=== PATIENT | male | born 1945 | race Caucasian/White ===

== ENCOUNTER 2017-02-10 12:30 | Emergency (ER) | payer MEDICARE, MEDICAID ==
[~2017-02-10] VITALS: Ht 167.6 cm; Wt 54.2 kg
[~2017-02-10 12:30] MED LIST: ADV50250 IH; AMITRIPTYLINE PO; ASPI-611 PO; ATOR10TA PO; CLON-528 PO; FERR325T28 PO; HYDR-3968 PO; LEVA15HF4 INH; LISI10TA4 PO; MARIJUANA; TIZA2CAP PO
[2017-02-10] MEDS ORDERED: METH500T PO (13:22)
[2017-02-10] MEDS ORDERED: VAL5T PO (13:22)
[2017-02-10 13:35] VITALS: BP 118/57
== END 2017-02-10 13:37 | disposition home or self-care (01) ==
LOC: ER 12:31
DX: S29.012A Strain of muscle and tendon of back wall of thorax, initial encounter (principal); S16.1XXA Strain of muscle, fascia and tendon at neck level, initial encounter; M62.830 Muscle spasm of back; G89.29 Other chronic pain; I10 Essential (primary) hypertension; G62.9 Polyneuropathy, unspecified; Z79.82 Long term (current) use of aspirin; Z79.899 Other long term (current) drug therapy; W18.39XA Other fall on same level, initial encounter; Y93.89 Activity, other specified; Y92.89 Other specified places as the place of occurrence of the external cause; Y99.8 Other external cause status
CPT/HCPCS: 99284

== ENCOUNTER 2017-03-19 12:02 | Emergency (ER) | payer MEDICARE, MEDICAID ==
[~2017-03-19] VITALS: Ht 167.6 cm; Wt 48.3 kg
[~2017-03-19 12:02] MED LIST changes: +METH500T PO
[2017-03-19] MEDS ORDERED: CEPH500C5 PO (12:35)
[2017-03-19 12:56] VITALS: BP 125/69
== END 2017-03-19 12:58 | disposition home or self-care (01) ==
LOC: ER 12:03
DX: L89.153 Pressure ulcer of sacral region, stage 3 (principal); L89.323 Pressure ulcer of left buttock, stage 3; L89.313 Pressure ulcer of right buttock, stage 3; G62.9 Polyneuropathy, unspecified; I10 Essential (primary) hypertension; G89.29 Other chronic pain; Z90.49 Acquired absence of other specified parts of digestive tract; Z79.82 Long term (current) use of aspirin; Z79.899 Other long term (current) drug therapy
CPT/HCPCS: 99284

== ENCOUNTER 2017-03-24 09:47 | Outpatient (CLI) | payer MEDICARE, MEDICAID ==
[~2017-03-24 09:47] MED LIST changes: +CEPH500C5 PO
== END 2017-03-24 11:12 | disposition home or self-care (01) ==
LOC: WOUND CARE 09:47 → EDSTATUS 10:00 → WOUND CARE 11:12
PROVIDERS: ATTEND Surgery
DX: L89.152 Pressure ulcer of sacral region, stage 2 (principal); I10 Essential (primary) hypertension; G62.9 Polyneuropathy, unspecified; Z90.49 Acquired absence of other specified parts of digestive tract; Z79.82 Long term (current) use of aspirin; Z79.899 Other long term (current) drug therapy
CPT/HCPCS: 99215; A6206; A6213

== ENCOUNTER 2017-04-03 10:00 | Outpatient (CLI) | payer MEDICARE, MEDICAID ==
[2017-04-04] MEDS ORDERED: NIFE60TA69 (07:03)
[2017-04-04] MEDS ORDERED: PREG50CA (07:03)
== END 2017-04-03 10:55 | disposition short-term general hospital (02) ==
LOC: EDSTATUS 10:00 → WOUND CARE 10:00
PROVIDERS: ATTEND Surgery
DX: L89.152 Pressure ulcer of sacral region, stage 2 (principal); I10 Essential (primary) hypertension; G62.9 Polyneuropathy, unspecified; Z90.49 Acquired absence of other specified parts of digestive tract; Z79.82 Long term (current) use of aspirin; Z79.899 Other long term (current) drug therapy; Z85.830 Personal history of malignant neoplasm of bone
CPT/HCPCS: 99215; A6212

== ENCOUNTER 2017-04-03 10:57 | Inpatient (IN) | payer MEDICARE, MEDICAID ==
[~2017-04-03] VITALS: Ht 167.6 cm; Wt 48.2 kg
[2017-04-03] VITALS (9 sets, daily range): BP systolic 79–96; BP diastolic 24–53
[2017-04-03] MEDS: K, MAG and/or Phos replacement - Verify level? MC SCH (08:00)
[2017-04-03] MEDS: ferrous sulfate 325mg tablet PO SCH (08:00)
[2017-04-03] MEDS ORDERED: normal saline 1000ml 1,000 ML IV ONE ×4 (11:40→20:45)
[2017-04-03] MEDS ORDERED: CefTRIAXone 2gm/NS 100ml IVPB 100 ML IV ONE (11:45)
[2017-04-03 11:48] LABS: BASOPHILS % (AUTO) 0 % (0-1); EOSINOPHILS # (AUTO) 0.5 X10'3 (0-0.9); HEMATOCRIT 28.6 % (42.0-52.0); HEMOGLOBIN 9.8 g/dl (14.0-17.9); LYMPHOCYTES # (AUTO) 0.5 X10'3 (1.1-4.8); MEAN CORPUSCULAR HEMOGLOBIN 30.6 PG (27.0-31.0); MEAN CORPUSCULAR HGB CONC 34.2 % (33.0-36.5); MEAN CORPUSCULAR VOLUME 89.5 FL (78-98); MEAN PLATELET VOLUME 7.8 FL (7.4-10.4); MONOCYTES # (AUTO) 0.6 X10'3 (0-0.9); MONOCYTES % (AUTO) 2.6 % (2-12); NEUTROPHILS # (AUTO) 21.5 X10'3 (1.8-7.7); NEUTROPHILS % (AUTO) 93.4 % (42-75); PLATELET COUNT 276 X10'3 (140-440); RED CELL DISTRIBUTION WIDTH 15.4 % (11.5-14.5)
[2017-04-03 12:03] LABS: AMMONIA < 10 UMOL/L (11-32)
[2017-04-03 12:04] LABS: ALANINE AMINOTRANSFERASE 35 U/L (12-78); ALBUMIN 2.5 G/DL (3.4-5.0); ALBUMIN/GLOBULIN RATIO 0.6 (1.1-1.5); ALKALINE PHOSPHATASE 198 IU/L (46-116); ANION GAP 16 (8-16); ASPARTATE AMINO TRANSFERASE 59 U/L (10-37); BILIRUBIN,TOTAL 0.6 MG/DL (0.1-1.0); BLOOD UREA NITROGEN 92 MG/DL (7-18); BUN/CREATININE RATIO 25.2 (5.4-32.0); CALCIUM 8.6 MG/DL (8.5-10.1); CHLORIDE 86 MMOL/L (99-107); CREATININE 3.65 MG/DL (0.60-1.10); GLUCOSE 184 MG/DL (70-104); POTASSIUM 5.5 MMOL/L (3.5-5.1); SODIUM 127 MMOL/L (135-145); TOTAL CARBON DIOXIDE 25.2 MMOL/L (24-32); TOTAL PROTEIN 6.7 G/DL (6.4-8.2); eGFR 17 ML/MIN
[2017-04-03 12:23] LABS: INR 1.2 INR; LACTIC SEPSIS 4.6 MMOL/L (0.4-2.0); MAGNESIUM 2.6 MG/DL (1.5-2.4); PARTIAL THROMBOPLASTIN TIME 25 SECONDS (22-32)
[2017-04-03] MEDS ORDERED: piperacillin/tazo 3.375gm/50ml 50 ML IV ONE (12:27)
[2017-04-03] MEDS ORDERED: heparin 10,000 units/1 ML INJ IV ONE ×2 (12:40)
[2017-04-03] MEDS ORDERED: heparin 10,000 units/1 ML INJ IV PRN (13:20)
[2017-04-03] MEDS ORDERED: potassium Cl 20 mEq SR tablet PO PRN (14:00)
[2017-04-03] MEDS ORDERED: Neutra Phos packet PO PRN (14:00)
[2017-04-03] MEDS ORDERED: magnesium 2GM in 50ml NS 50 ML IV PRN (14:00)
[2017-04-03] MEDS ORDERED: magnesium 4gm in 100ml NS 100 ML IV PRN (14:00)
[2017-04-03] MEDS ORDERED: acetaminophen 325mg tablet PO PRN ×2 (14:00)
[2017-04-03] MEDS ORDERED: ondansetron/PF 4mg/2ml inj IV PRN (14:00)
[2017-04-03] MEDS ORDERED: sodium phosphate inj. 30 MMOL in dextrose 5%-water 250 ML IV PRN (14:00)
[2017-04-03] MEDS ORDERED: magnesium hydroxide 30ml (MOM) UD suspension PO PRN (14:00)
[2017-04-03] MEDS ORDERED: sodium phosphate inj. 15 MMOL in dextrose 5%-water 150 ML IV PRN (14:00)
[2017-04-03] MEDS ORDERED: magnesium Cl slow-release 64mg tablet PO PRN (14:00)
[2017-04-03 14:30] LABS: OCCULT BLOOD STOOL NEGATIVE (Neg)
[2017-04-03] MEDS: normal saline 1000ml 1,000 ML IV SCH ×5 (14:36→22:42)
[2017-04-03] MEDS ORDERED: heparin 10,000 units/1 ML INJ IV SCH (14:50)
[2017-04-03 15:18] LABS: CLARITY,URINE CLOUDY (Clear); COLOR,URINE YELLOW (Yellow); GLUCOSE, URINE NEGATIVE (Neg); KETONES,URINE NEGATIVE (Neg); LEUKOCYTE ESTERASE ,URINE SMALL (Neg); NITRITES, URINE NEGATIVE (Neg); OCCULT BLOOD,URINE LARGE (Neg); PROTEIN,URINE TRACE mg/dl (Neg); UA COLLECTION TYPE FOLEY CATH; UROBILINOGEN,URINE 0.2 E.U/dL (0.2-1.0)
[2017-04-03 15:27] LABS: SQUAMOUS EPITHELIAL CELL,UR MANY /LPF (FEW); WBC CLUMPS,URINE MANY /HPF (NEGATIVE)
[2017-04-03 15:28] LABS: BACTERIA,URINE 2+ /HPF (Neg); RBC,URINE 50-100 /HPF (0-2); WBC,URINE 50-100 /HPF (0-4)
[2017-04-03] MEDS: levoFLOXACIN-Levaquin 500mg/D5 100 ML IV SCH (16:53)
[2017-04-03 17:15] LABS: GASTRIC OCCULT BLOOD NEGATIVE (Neg)
[2017-04-03] MEDS ORDERED: insulin regular, human 10 units/0.1 ml syringe IV ONE (17:15)
[2017-04-03] MEDS ORDERED: sodium bicarbonate (8.4%) 1 mEq/ml syringe IV ONE ×2 (17:15→17:40)
[2017-04-03] MEDS ORDERED: dextrose 50%-water 50ml dispensing syringe IV ONE (17:15)
[2017-04-03] MEDS ORDERED: sodium polystyrene sulfonate 15gm/60ml oral suspension PO ONE (17:15)
[2017-04-03] MEDS: albuterol 2.5 MG/3 ML nebule CONTNEB PRN ×2 (17:54→21:40)
[2017-04-03 19:16] LABS: ABG BASE EXCESS -2.2 mmol/L (-2.0-3.0); ABG HCO3 20.9 mmol/L (22.0-26.0); ABG OXYGEN SATURATION 94.2 % (95-98); ABG PCO2 (T) 30.4 mmHg (35.0-48.0); ABG PH (T) 7.458 (7.350-7.450); ABG PO2 (T) 77.2 mmHg (83-108); FCOHb 0.3 % (0.5-1.5); FO2Hb 93.9 % (94-100); PATIENT TEMPERATURE 37.6; TOTAL HEMOGLOBIN 8.9 G/dl (14.0-18.0)
[2017-04-03] MEDS ORDERED: albumin (human) 25% 100 ML IV solution IV ONE (20:15)
[2017-04-03] MEDS ORDERED: albumin (Human) 5% 250 ML IV solution IV STA ×2 (20:39→20:42)
[2017-04-03] MEDS: atorvastatin 10mg tablet PO SCH (22:15)
[2017-04-03] MEDS: clonazePAM 0.5mg tablet PO SCH (22:15)
[2017-04-03 22:32] LABS: BASOPHILS % (AUTO) 0 % (0-1); EOSINOPHILS % (AUTO) 0 % (0-6); HEMOGLOBIN 7.6 g/dl (14.0-17.9); LYMPHOCYTES # (AUTO) 0.1 X10'3 (1.1-4.8); LYMPHOCYTES % (AUTO) 0.5 % (21-51); MEAN CORPUSCULAR HEMOGLOBIN 30.7 PG (27.0-31.0); MEAN CORPUSCULAR HGB CONC 34.8 % (33.0-36.5); MEAN CORPUSCULAR VOLUME 88.4 FL (78-98); MEAN PLATELET VOLUME 7.4 FL (7.4-10.4); MONOCYTES # (AUTO) 0.5 X10'3 (0-0.9); MONOCYTES % (AUTO) 2.6 % (2-12); NEUTROPHILS # (AUTO) 18.7 X10'3 (1.8-7.7); NEUTROPHILS % (AUTO) 96.9 % (42-75); PLATELET COUNT 249 X10'3 (140-440); RED BLOOD COUNT 2.49 X10'6 (4.70-6.10); RED CELL DISTRIBUTION WIDTH 15.5 % (11.5-14.5); WHITE BLOOD COUNT 19.3 X10'3 (4.5-11.0)
[2017-04-03 22:46] LABS: ALANINE AMINOTRANSFERASE 25 U/L (12-78); ALBUMIN 2.3 G/DL (3.4-5.0); ALBUMIN/GLOBULIN RATIO 0.7 (1.1-1.5); ALKALINE PHOSPHATASE 142 IU/L (46-116); ANION GAP 11 (8-16); ASPARTATE AMINO TRANSFERASE 46 U/L (10-37); BILIRUBIN,TOTAL 0.5 MG/DL (0.1-1.0); BLOOD UREA NITROGEN 69 MG/DL (7-18); BUN/CREATININE RATIO 35.6 (5.4-32.0); CALCIUM 7.5 MG/DL (8.5-10.1); CHLORIDE 98 MMOL/L (99-107); CREATININE 1.94 MG/DL (0.60-1.10); GLUCOSE 133 MG/DL (70-104); MAGNESIUM 2.1 MG/DL (1.5-2.4); PHOSPHORUS 4.1 MG/DL (2.3-4.5); POTASSIUM 3.6 MMOL/L (3.5-5.1); SODIUM 136 MMOL/L (135-145); TOTAL CARBON DIOXIDE 27.1 MMOL/L (24-32); TOTAL PROTEIN 5.4 G/DL (6.4-8.2); eGFR 34 ML/MIN
[2017-04-04] VITALS (28 sets, daily range): BP systolic 83–110; BP diastolic 33–56
[2017-04-04] MEDS: normal saline 1000ml 1,000 ML IV SCH ×2 (00:29→14:24)
[2017-04-04] MEDS ORDERED: HYDROcodone/acetaminophen 5mg/325mg tablet PO ONE (01:45)
[2017-04-04 05:21] LABS: BASOPHILS % (AUTO) 0 % (0-1); EOSINOPHILS % (AUTO) 0 % (0-6); HEMOGLOBIN 7.1 g/dl (14.0-17.9); LYMPHOCYTES # (AUTO) 0.2 X10'3 (1.1-4.8); LYMPHOCYTES % (AUTO) 1.3 % (21-51); MEAN CORPUSCULAR HEMOGLOBIN 30.9 PG (27.0-31.0); MEAN CORPUSCULAR HGB CONC 34.9 % (33.0-36.5); MEAN CORPUSCULAR VOLUME 88.4 FL (78-98); MEAN PLATELET VOLUME 7.4 FL (7.4-10.4); MONOCYTES # (AUTO) 0.4 X10'3 (0-0.9); MONOCYTES % (AUTO) 2.3 % (2-12); NEUTROPHILS # (AUTO) 18.2 X10'3 (1.8-7.7); NEUTROPHILS % (AUTO) 96.4 % (42-75); PLATELET COUNT 243 X10'3 (140-440); RED CELL DISTRIBUTION WIDTH 15.4 % (11.5-14.5); WHITE BLOOD COUNT 18.9 X10'3 (4.5-11.0)
[2017-04-04 05:31] LABS: ALANINE AMINOTRANSFERASE 24 U/L (12-78); ALBUMIN 2.6 G/DL (3.4-5.0); ALBUMIN/GLOBULIN RATIO 0.9 (1.1-1.5); ALKALINE PHOSPHATASE 129 IU/L (46-116); ANION GAP 12 (8-16); ASPARTATE AMINO TRANSFERASE 43 U/L (10-37); BILIRUBIN,TOTAL 0.6 MG/DL (0.1-1.0); BLOOD UREA NITROGEN 61 MG/DL (7-18); BUN/CREATININE RATIO 40.7 (5.4-32.0); CALCIUM 7.8 MG/DL (8.5-10.1); CHLORIDE 99 MMOL/L (99-107); GLUCOSE 114 MG/DL (70-104); PHOSPHORUS 3.9 MG/DL (2.3-4.5); POTASSIUM 3.4 MMOL/L (3.5-5.1); SODIUM 138 MMOL/L (135-145); TOTAL CARBON DIOXIDE 26.9 MMOL/L (24-32); TOTAL PROTEIN 5.4 G/DL (6.4-8.2); eGFR 46 ML/MIN
[2017-04-04 05:35] LABS: HEMATOCRIT 20.3 % (42.0-52.0)
[2017-04-04] MEDS ORDERED: FLU VACC QS2017-18 36MOS UP/PF 60 MCG/0.5 ML SYRINGE IMVAC ONE (06:25)
[2017-04-04] MEDS ORDERED: pneumococcal 23-VAL P-sac vacc 25 mcg/0.5ml vial IMVAC ONE (06:25)
[2017-04-04] MEDS ORDERED: NIFE60TA69 (07:03)
[2017-04-04] MEDS ORDERED: PREG50CA (07:03)
[2017-04-04] MEDS: albuterol 2.5 MG/3 ML nebule CONTNEB PRN (07:39)
[2017-04-04] MEDS: K, MAG and/or Phos replacement - Verify level? MC SCH (08:00)
[2017-04-04] MEDS: clonazePAM 0.5mg tablet PO SCH ×3 (08:15→20:03)
[2017-04-04] MEDS: aspirin 81mg tablet.DR PO SCH (08:16)
[2017-04-04] MEDS: potassium Cl 20 mEq SR tablet PO PRN ×2 (08:16→15:26)
[2017-04-04] MEDS: ferrous sulfate 325mg tablet PO SCH (08:16)
[2017-04-04] MEDS: levoFLOXACIN-Levaquin 500mg/D5 100 ML IV SCH (08:17)
[2017-04-04 09:24] LABS: HEMATOCRIT 27.2 % (42.0-52.0); HEMOGLOBIN 9.4 g/dl (14.0-17.9); MEAN CORPUSCULAR HEMOGLOBIN 29.5 PG (27.0-31.0); MEAN CORPUSCULAR HGB CONC 34.5 % (33.0-36.5); MEAN CORPUSCULAR VOLUME 85.5 FL (78-98); MEAN PLATELET VOLUME 7.3 FL (7.4-10.4); PLATELET COUNT 235 X10'3 (140-440); RED BLOOD COUNT 3.19 X10'6 (4.70-6.10); RED CELL DISTRIBUTION WIDTH 17.5 % (11.5-14.5); WHITE BLOOD COUNT 21.1 X10'3 (4.5-11.0)
[2017-04-04] MEDS: cefTRIAXone 1g/NS 100ml IVPB 100 ML IV SCH (09:37)
[2017-04-04] MEDS: multivitamin oral liquid (Certavite) 5ml cup PO SCH (11:41)
[2017-04-04] MEDS: pantoprazole 40 MG vial IV SCH (11:41)
[2017-04-04] MEDS: hydrocortisone sod succ/PF 100mg/2ml inj. IV SCH ×2 (14:19→19:05)
[2017-04-04] MEDS: lactobacillus rhamnosus 10,000 MMU CELLS/CAPSULE PO SCH (19:06)
[2017-04-04] MEDS: atorvastatin 10mg tablet PO SCH (20:03)
[2017-04-04] MEDS ORDERED: normal saline 500ml IV soln 1,000 ML IV ONE (20:50)
[2017-04-05] VITALS (25 sets, daily range): BP systolic 84–118; BP diastolic 39–62
[2017-04-05 02:35] LABS: BASOPHILS % (AUTO) 0.2 % (0-1); EOSINOPHILS % (AUTO) 0 % (0-6); HEMATOCRIT 24.8 % (42.0-52.0); HEMOGLOBIN 8.3 g/dl (14.0-17.9); LYMPHOCYTES # (AUTO) 0.2 X10'3 (1.1-4.8); MEAN CORPUSCULAR HEMOGLOBIN 28.9 PG (27.0-31.0); MEAN CORPUSCULAR HGB CONC 33.5 % (33.0-36.5); MEAN CORPUSCULAR VOLUME 86.1 FL (78-98); MEAN PLATELET VOLUME 7.3 FL (7.4-10.4); MONOCYTES # (AUTO) 0.6 X10'3 (0-0.9); MONOCYTES % (AUTO) 2.9 % (2-12); NEUTROPHILS % (AUTO) 95.9 % (42-75); PLATELET COUNT 225 X10'3 (140-440); RED BLOOD COUNT 2.88 X10'6 (4.70-6.10); RED CELL DISTRIBUTION WIDTH 17.5 % (11.5-14.5); WHITE BLOOD COUNT 19.8 X10'3 (4.5-11.0)
[2017-04-05] MEDS: hydrocortisone sod succ/PF 100mg/2ml inj. IV SCH ×4 (02:42→20:31)
[2017-04-05 02:49] LABS: ALANINE AMINOTRANSFERASE 21 U/L (12-78); ALBUMIN 1.9 G/DL (3.4-5.0); ALBUMIN/GLOBULIN RATIO 0.6 (1.1-1.5); ALKALINE PHOSPHATASE 125 IU/L (46-116); ANION GAP 8 (8-16); ASPARTATE AMINO TRANSFERASE 35 U/L (10-37); BILIRUBIN,TOTAL 0.5 MG/DL (0.1-1.0); BLOOD UREA NITROGEN 42 MG/DL (7-18); BUN/CREATININE RATIO 56.8 (5.4-32.0); CALCIUM 7.9 MG/DL (8.5-10.1); CHLORIDE 106 MMOL/L (99-107); CREATININE 0.74 MG/DL (0.60-1.10); GLUCOSE 184 MG/DL (70-104); PHOSPHORUS 2.3 MG/DL (2.3-4.5); POTASSIUM 3.4 MMOL/L (3.5-5.1); SODIUM 139 MMOL/L (135-145); TOTAL CARBON DIOXIDE 24.8 MMOL/L (24-32); eGFR > 90 ML/MIN
[2017-04-05] MEDS ORDERED: potassium Cl oral solution 20 MEQ/15 ML PO PRN (03:20)
[2017-04-05] MEDS: potassium Cl oral solution 20 MEQ/15 ML PO PRN ×2 (03:52→12:33)
[2017-04-05] MEDS: normal saline 1000ml 1,000 ML IV SCH ×2 (05:56→11:17)
[2017-04-05] MEDS: K, MAG and/or Phos replacement - Verify level? MC SCH (08:00)
[2017-04-05] MEDS: pantoprazole 40 MG vial IV SCH (08:25)
[2017-04-05] MEDS: levoFLOXACIN-Levaquin 500mg/D5 100 ML IV SCH (08:25)
[2017-04-05] MEDS: lactobacillus rhamnosus 10,000 MMU CELLS/CAPSULE PO SCH ×2 (08:25→20:32)
[2017-04-05] MEDS: aspirin 81mg tablet.DR PO SCH (08:25)
[2017-04-05] MEDS: ferrous sulfate 325mg tablet PO SCH (08:25)
[2017-04-05] MEDS: clonazePAM 0.5mg tablet PO SCH ×3 (08:25→20:32)
[2017-04-05] MEDS: cefTRIAXone 1g/NS 100ml IVPB 100 ML IV SCH (08:25)
[2017-04-05] MEDS: multivitamin oral liquid (Certavite) 5ml cup PO SCH (08:25)
[2017-04-05] MEDS ORDERED: MESSAGE TO PHARMACY PO ONE (09:15)
[2017-04-05] MEDS ORDERED: dextrose 50%-water 50ml dispensing syringe IV PRN ×2 (09:15)
[2017-04-05] MEDS ORDERED: dextrose ORAL solution 15 GM/59 ML bottle PO PRN ×2 (09:15)
[2017-04-05] MEDS ORDERED: glucagon, human recombinant 1mg kit SUBCUT PRN (09:15)
[2017-04-05] MEDS: insulin regular, human vial - multi-dose SQ SCH ×2 (14:44→20:52)
[2017-04-05] MEDS: atorvastatin 10mg tablet PO SCH (20:32)
[2017-04-05] MEDS: enoxaparin 40mg/0.4ml syringe SUBCUT SCH (20:32)
[2017-04-05] MEDS: insulin glargine (Lantus) pen - multi-dose SQ SCH (20:54)
[2017-04-06] VITALS (22 sets, daily range): BP systolic 84–131; BP diastolic 51–72
[2017-04-06] MEDS: hydrocortisone sod succ/PF 100mg/2ml inj. IV SCH ×4 (02:09→20:50)
[2017-04-06] MEDS: insulin regular, human vial - multi-dose SQ SCH ×3 (02:12→15:05)
[2017-04-06 03:38] LABS: BASOPHILS % (AUTO) 0 % (0-1); EOSINOPHILS # (AUTO) 0.4 X10'3 (0-0.9); EOSINOPHILS % (AUTO) 1.8 % (0-6); HEMATOCRIT 24.8 % (42.0-52.0); HEMOGLOBIN 8.5 g/dl (14.0-17.9); LYMPHOCYTES # (AUTO) 0.3 X10'3 (1.1-4.8); LYMPHOCYTES % (AUTO) 1.4 % (21-51); MEAN CORPUSCULAR HEMOGLOBIN 29.2 PG (27.0-31.0); MEAN CORPUSCULAR HGB CONC 34.3 % (33.0-36.5); MEAN CORPUSCULAR VOLUME 85.2 FL (78-98); MEAN PLATELET VOLUME 7.8 FL (7.4-10.4); MONOCYTES # (AUTO) 0.4 X10'3 (0-0.9); MONOCYTES % (AUTO) 1.9 % (2-12); NEUTROPHILS # (AUTO) 18.6 X10'3 (1.8-7.7); NEUTROPHILS % (AUTO) 94.9 % (42-75); PLATELET COUNT 228 X10'3 (140-440); RED BLOOD COUNT 2.91 X10'6 (4.70-6.10); RED CELL DISTRIBUTION WIDTH 18.6 % (11.5-14.5); WHITE BLOOD COUNT 19.6 X10'3 (4.5-11.0)
[2017-04-06 03:54] LABS: ALANINE AMINOTRANSFERASE 32 U/L (12-78); ALBUMIN 1.7 G/DL (3.4-5.0); ALBUMIN/GLOBULIN RATIO 0.5 (1.1-1.5); ALKALINE PHOSPHATASE 131 IU/L (46-116); ANION GAP 6 (8-16); ASPARTATE AMINO TRANSFERASE 34 U/L (10-37); BILIRUBIN,TOTAL 0.4 MG/DL (0.1-1.0); BLOOD UREA NITROGEN 37 MG/DL (7-18); BUN/CREATININE RATIO 56.9 (5.4-32.0); CALCIUM 8.8 MG/DL (8.5-10.1); CHLORIDE 109 MMOL/L (99-107); CREATININE 0.65 MG/DL (0.60-1.10); GLUCOSE 109 MG/DL (70-104); MAGNESIUM 1.8 MG/DL (1.5-2.4); PHOSPHORUS 1.7 MG/DL (2.3-4.5); POTASSIUM 3.9 MMOL/L (3.5-5.1); PREALBUMIN 5.5 MG/DL (19-36); SODIUM 142 MMOL/L (135-145); TOTAL CARBON DIOXIDE 26.6 MMOL/L (24-32); TOTAL PROTEIN 5.2 G/DL (6.4-8.2); eGFR > 90 ML/MIN
[2017-04-06] MEDS: levoFLOXACIN-Levaquin 500mg/D5 100 ML IV SCH (07:39)
[2017-04-06] MEDS: pantoprazole 40 MG vial IV SCH (07:39)
[2017-04-06] MEDS: multivitamin oral liquid (Certavite) 5ml cup PO SCH (07:39)
[2017-04-06] MEDS: clonazePAM 0.5mg tablet PO SCH ×3 (07:39→20:49)
[2017-04-06] MEDS: ferrous sulfate 325mg tablet PO SCH (07:39)
[2017-04-06] MEDS: aspirin 81mg tablet.DR PO SCH (07:39)
[2017-04-06] MEDS: enoxaparin 40mg/0.4ml syringe SUBCUT SCH ×2 (07:40→20:50)
[2017-04-06] MEDS: lactobacillus rhamnosus 10,000 MMU CELLS/CAPSULE PO SCH ×2 (07:47→20:00)
[2017-04-06] MEDS: K, MAG and/or Phos replacement - Verify level? MC SCH (08:00)
[2017-04-06] MEDS: albuterol 2.5 MG/3 ML nebule NEB PRN (08:32)
[2017-04-06] MEDS: normal saline 1000ml 1,000 ML IV SCH ×2 (15:07→21:56)
[2017-04-06] MEDS: atorvastatin 10mg tablet PO SCH (20:49)
[2017-04-06] MEDS: insulin glargine (Lantus) pen - multi-dose SQ SCH (21:00)
[2017-04-07] VITALS (10 sets, daily range): BP systolic 90–106; BP diastolic 55–65
[2017-04-07] MEDS: hydrocortisone sod succ/PF 100mg/2ml inj. IV SCH ×2 (02:14→07:37)
[2017-04-07] MEDS: normal saline 1000ml 1,000 ML IV SCH (02:30)
[2017-04-07 03:35] LABS: BASOPHILS % (AUTO) 0 % (0-1); EOSINOPHILS # (AUTO) 0.3 X10'3 (0-0.9); EOSINOPHILS % (AUTO) 1.4 % (0-6); HEMATOCRIT 27.6 % (42.0-52.0); HEMOGLOBIN 9.2 g/dl (14.0-17.9); LYMPHOCYTES # (AUTO) 0.6 X10'3 (1.1-4.8); LYMPHOCYTES % (AUTO) 2.4 % (21-51); MEAN CORPUSCULAR HEMOGLOBIN 29.1 PG (27.0-31.0); MEAN CORPUSCULAR HGB CONC 33.5 % (33.0-36.5); MEAN CORPUSCULAR VOLUME 87.1 FL (78-98); MEAN PLATELET VOLUME 7.7 FL (7.4-10.4); MONOCYTES # (AUTO) 0.8 X10'3 (0-0.9); MONOCYTES % (AUTO) 3.4 % (2-12); NEUTROPHILS # (AUTO) 21.8 X10'3 (1.8-7.7); NEUTROPHILS % (AUTO) 92.8 % (42-75); PLATELET COUNT 225 X10'3 (140-440); RED BLOOD COUNT 3.17 X10'6 (4.70-6.10); RED CELL DISTRIBUTION WIDTH 18.8 % (11.5-14.5); WHITE BLOOD COUNT 23.5 X10'3 (4.5-11.0)
[2017-04-07 03:56] LABS: ALANINE AMINOTRANSFERASE 48 U/L (12-78); ALBUMIN 1.7 G/DL (3.4-5.0); ALBUMIN/GLOBULIN RATIO 0.5 (1.1-1.5); ALKALINE PHOSPHATASE 128 IU/L (46-116); ANION GAP 9 (8-16); ASPARTATE AMINO TRANSFERASE 41 U/L (10-37); BILIRUBIN,TOTAL 0.5 MG/DL (0.1-1.0); BLOOD UREA NITROGEN 36 MG/DL (7-18); BUN/CREATININE RATIO 52.9 (5.4-32.0); CALCIUM 8.9 MG/DL (8.5-10.1); CHLORIDE 107 MMOL/L (99-107); CREATININE 0.68 MG/DL (0.60-1.10); GLUCOSE 173 MG/DL (70-104); MAGNESIUM 1.7 MG/DL (1.5-2.4); POTASSIUM 4.2 MMOL/L (3.5-5.1); SODIUM 140 MMOL/L (135-145); TOTAL PROTEIN 5.2 G/DL (6.4-8.2); eGFR > 90 ML/MIN
[2017-04-07] MEDS: aspirin 81mg tablet.DR PO SCH (07:37)
[2017-04-07] MEDS: levoFLOXACIN-Levaquin 500mg/D5 100 ML IV SCH (07:37)
[2017-04-07] MEDS: ferrous sulfate 325mg tablet PO SCH (07:37)
[2017-04-07] MEDS: lactobacillus rhamnosus 10,000 MMU CELLS/CAPSULE PO SCH (07:37)
[2017-04-07] MEDS: multivitamin oral liquid (Certavite) 5ml cup PO SCH (07:37)
[2017-04-07] MEDS: pantoprazole 40 MG vial IV SCH (07:37)
[2017-04-07] MEDS: clonazePAM 0.5mg tablet PO SCH (07:37)
[2017-04-07] MEDS: enoxaparin 40mg/0.4ml syringe SUBCUT SCH (07:38)
[2017-04-07] MEDS: albuterol 2.5 MG/3 ML nebule NEB PRN (08:42)
== END 2017-04-07 11:15 | disposition hospice, home (50) | DRG 871 ==
LOC: ER 10:59 → ED HOLD 13:56 → CICU 2S 14:48
PROC: 30233N1 Transfusion of Nonautologous Red Blood Cells into Peripheral Vein, Percutaneous Approach (ICD-10-PCS; principal; 2017-04-04)
PROC: 02H633Z Insertion of Infusion Device into Right Atrium, Percutaneous Approach (ICD-10-PCS; 2017-04-04)
PROC: B244ZZZ Ultrasonography of Right Heart (ICD-10-PCS; 2017-04-04)
DX: A41.9 Sepsis, unspecified organism (principal); E43 Unspecified severe protein-calorie malnutrition; L89.152 Pressure ulcer of sacral region, stage 2; N17.9 Acute kidney failure, unspecified; I82.402 Acute embolism and thrombosis of unspecified deep veins of left lower extremity; C79.51 Secondary malignant neoplasm of bone; E87.2 Acidosis; R64 Cachexia; E86.0 Dehydration; N13.30 Unspecified hydronephrosis; N39.0 Urinary tract infection, site not specified; Z68.1 Body mass index [BMI] 19.9 or less, adult; I82.502 Chronic embolism and thrombosis of unspecified deep veins of left lower extremity; G62.9 Polyneuropathy, unspecified; N32.0 Bladder-neck obstruction; B96.1 Klebsiella pneumoniae [K. pneumoniae] as the cause of diseases classified elsewhere; M54.9 Dorsalgia, unspecified; G89.29 Other chronic pain; F41.9 Anxiety disorder, unspecified; I10 Essential (primary) hypertension; K59.00 Constipation, unspecified; Z51.5 Encounter for palliative care; Z90.49 Acquired absence of other specified parts of digestive tract; Z79.899 Other long term (current) drug therapy; Z82.41 Family history of sudden cardiac death; Z83.3 Family history of diabetes mellitus; Z23 Encounter for immunization
CPT/HCPCS: 36415; 36569; 36600; 71045; 74176; 76937; 80053; 81001; 82140; 82271; 82272; 82803; 82948; 83036; 83605; 83735; 84100; 84132; 84134; 84145; 85018; 85025; 85027; 85610; 85730; 86885; 86900; 86901; 86920; 87040; 87070; 87077; 87088; 87186; 93005; 93306; 93971; 94640; 94760; 96365; 97161; 97530; 99291; 99292; A4315; A6213; C9113; J0696; J1644; J1650; J1720; J1815; J1956; J2543; J7030; J7060; P9016; P9045; P9047